=== PATIENT | female | born 1940 | race Caucasian/White ===

== ENCOUNTER → 2018-02-03 | Outpatient (CLI) | payer MEDICARE, BC ==
--- NOTE | 2018-02-03 15:19 | PCVCIMAG ---
EXAM: VENOUS DUPLEX RIGHT LOWER EXTREMITY INDICATION: Leg pain and swelling. FINDINGS: Right leg: No thrombus in the common femoral, main femoral, or popliteal veins. These veins are compressible with phasic flow. Calf veins are unremarkable where seen. IMPRESSION: No evidence of deep venous thrombosis in the right lower extremity as detailed above. Incidental note is moderately extensive atherosclerotic plaque in the right common femoral and superficial femoral arteries. If needed clinically arterial duplex of the right leg could be obtained. LOC:[id number]
== END | disposition home or self-care (01) ==
LOC: PCVCIMAG 13:00
PROVIDERS: ATTEND Nuclear Medicine Nuclear Cardiology
DX: I70.8 Atherosclerosis of other arteries (principal); R60.0 Localized edema
CPT/HCPCS: 93971